=== PATIENT | female | born 1980 | race Caucasian/White ===

== ENCOUNTER 2017-04-16 22:59 | Outpatient (CLI) | payer MEDICAID ==
[2017-04-17 00:16] LABS: ADD UMIC NO; UR ASCORBIC ACID NEGATIVE (NEGATIVE); UR BILIRUBIN (Dip) NEGATIVE (NEGATIVE); UR BLOOD (Dip) NEGATIVE (NEGATIVE); UR CLARITY CLEAR (CLEAR); UR COLOR YELLOW (YELLOW); UR GLUCOSE (Dip) NEGATIVE (NEGATIVE); UR KETONES (Dip) NEGATIVE (NEGATIVE); UR LEUKOCYTE ESTERASE (Dip) NEGATIVE Leu/ul (NEGATIVE); UR NITRITE (Dip) NEGATIVE (NEGATIVE); UR SPECIFIC GRAVITY (Dip) 1.016 (1.003-1.030); UR TOTAL PROTEIN (Dip) NEGATIVE (NEGATIVE); UR UROBILINOGEN (Dip) 1+ mg/dL (NEGATIVE)
== END 2017-04-17 03:36 | disposition home or self-care (01) ==
LOC: OBT 22:59 → L-D 23:03
DX: O62.9 Abnormality of forces of labor, unspecified (principal); Z3A.36 36 weeks gestation of pregnancy
CPT/HCPCS: 76815; 76818; 81003

== ENCOUNTER 2017-04-28 19:27 | Inpatient (IN) | payer MEDICAID ==
[2017-04-28] MEDS ORDERED: LACTATED RINGER'S 1,000 ML IV (20:06)
[2017-04-28] MEDS ORDERED: CARBOPROST 250 MCG INJ IM (20:30)
[2017-04-28] MEDS ORDERED: MISOPROSTOL 200 MCG TAB PR (20:30)
[2017-04-28] MEDS ORDERED: METHYLERGONOVINE 0.2 MG INJ IM (20:30)
[2017-04-28] MEDS ORDERED: OXYTOCIN 30 UNITS/LR 500 ML IV ×2 (20:30)
[2017-04-28] MEDS ORDERED: BUTORPHANOL 2 MG INJ IV (20:30)
[2017-04-28] MEDS ORDERED: LIDOCAINE 1% (MPF) 30 ML INJ INJ (20:30)
[2017-04-28] MEDS: LACTATED RINGER'S 1,000 ML IV (20:40)
[2017-04-28] MEDS: AMPICILLIN 2 GM/NS (PMX) 100 ML IV (20:45)
[2017-04-28 21:14] LABS: ADD MAN DIFF? NO
[2017-04-28] MEDS: OXYTOCIN 30 UNITS/LR 500 ML IV ×2 (21:15→23:06)
[2017-04-28 21:17] LABS: WHITE BLOOD COUNT 9.1 10^3/ul (4.8-10.8)
[2017-04-28 21:17] LABS: BASOPHILS % 0.3 % (0.0-2.0); EOSINOPHILS # 0.1 10^3/ul (0.0-0.5); HEMATOCRIT 32.3 % (37.0-47.0); HEMOGLOBIN 10.8 g/dl (12.0-16.0); LYMPHOCYTES # 2.3 10^3/ul (0.8-2.9); LYMPHOCYTES % 25.6 % (15.0-51.0); MEAN CORPUSCULAR HEMOGLOBIN 29.5 pg (29.0-33.0); MEAN CORPUSCULAR HGB CONC 33.4 g/dl (32.0-37.0); MEAN CORPUSCULAR VOLUME 88.3 fl (82.0-101.0); MEAN PLATELET VOLUME 12.6 fl (7.4-10.4); MONOCYTE # 0.6 10^3/ul (0.3-0.9); MONOCYTES % 6.8 % (0.0-11.0); PLATELET COUNT 131 10^3/UL (140-415); RED BLOOD COUNT 3.66 10^6/ul (4.20-5.40); RED CELL DISTRIBUTION WIDTH 12.7 % (11.5-14.5)
[2017-04-28 21:40] LABS: PROTIME 12.2 Sec (11.9-14.9)
[2017-04-28 21:41] LABS: PARTIAL THROMBOPLASTIN TIME 21.9 Sec (25.0-35.0)
[2017-04-28 22:09] LABS: HEPATITIS B SURFACE ANTIGEN NEGATIVE (NEGATIVE)
[2017-04-28] MEDS: IBUPROFEN 600 MG TAB PO (22:54)
[2017-04-28] MEDS ORDERED: DEXTROSE 5%-LR 1,000 ML IV (23:43)
[2017-04-29] MEDS ORDERED: AMPICILLIN 1 GM/NS (PMX) 50 ML IV (00:30)
[2017-04-29] MEDS ORDERED: OXYTOCIN 30 UNITS/LR 500 ML IV ×4 (01:02→02:00)
[2017-04-29] MEDS ORDERED: CARBOPROST 250 MCG INJ IM ×3 (01:30→02:00)
[2017-04-29] MEDS ORDERED: NA PHOSPHATE/BIPHOS 133 ML ENEMA PR (01:30)
[2017-04-29] MEDS ORDERED: WITCH HAZEL/GLYCERIN PAD PR (01:30)
[2017-04-29] MEDS ORDERED: LANOLIN 7 GM TUBE TOP (01:30)
[2017-04-29] MEDS ORDERED: DIBUCAINE 1% 30 GM OINT PR ×2 (01:30→02:00)
[2017-04-29] MEDS ORDERED: METHYLERGONOVINE 0.2 MG INJ IM ×3 (01:30→02:00)
[2017-04-29] MEDS ORDERED: BENZOCAINE 20% 56 ML SPRAY TOP (01:30)
[2017-04-29] MEDS ORDERED: ACETAMINOPHEN 325 MG TAB PO ×2 (01:30→02:00)
[2017-04-29] MEDS ORDERED: ZOLPIDEM 5 MG TAB PO ×2 (01:30→02:00)
[2017-04-29] MEDS ORDERED: MISOPROSTOL 200 MCG TAB PR ×3 (01:30→02:00)
[2017-04-29] MEDS ORDERED: LACTATED RINGER'S 1,000 ML IV* (01:53)
[2017-04-29] MEDS ORDERED: ONDANSETRON 4 MG INJ IV (02:00)
[2017-04-29] MEDS ORDERED: OXYCODONE/ASPIRIN (4.88/325) TAB PO (02:00)
[2017-04-29] MEDS ORDERED: DIPHENHYDRAMINE 50 MG INJ IV (02:00)
[2017-04-29] MEDS: WITCH HAZEL/GLYCERIN PAD PR (02:53)
[2017-04-29] MEDS: HYDROCODONE/APAP (5/325) TAB PO (02:53)
[2017-04-29] MEDS: BENZOCAINE 20% 56 ML SPRAY TOP (02:53)
[2017-04-29] MEDS: LANOLIN 7 GM TUBE TOP (02:54)
[2017-04-29] MEDS: IBUPROFEN 600 MG TAB PO ×3 (05:35→18:23)
[2017-04-29] MEDS ORDERED: IBUPROFEN 800 MG TAB PO (06:00)
[2017-04-29] MEDS ORDERED: SENNA/DOCUSATE NA (8.6MG/50MG) TAB PO (09:00)
[2017-04-29 09:15] LABS: ADD MAN DIFF? NO
[2017-04-29 09:18] LABS: BASOPHILS % 0.3 % (0.0-2.0); EOSINOPHILS # 0.2 10^3/ul (0.0-0.5); EOSINOPHILS % 1.2 % (0.0-7.0); HEMATOCRIT 30.8 % (37.0-47.0); HEMOGLOBIN 10.3 g/dl (12.0-16.0); LYMPHOCYTES % 26.3 % (15.0-51.0); MEAN CORPUSCULAR HEMOGLOBIN 29.4 pg (29.0-33.0); MEAN CORPUSCULAR HGB CONC 33.4 g/dl (32.0-37.0); MEAN PLATELET VOLUME 12.3 fl (7.4-10.4); MONOCYTES % 6.9 % (0.0-11.0); NEUTROPHIL # 9.8 10^3/ul (1.6-7.5); NEUTROPHILS % 64.8 % (39.0-77.0); PLATELET COUNT 121 10^3/UL (140-415)
[2017-04-29 09:18] LABS: WHITE BLOOD COUNT 15.1 10^3/ul (4.8-10.8)
[2017-04-29] MEDS: SENNA/DOCUSATE NA (8.6MG/50MG) TAB PO ×2 (10:18→21:40)
[2017-04-29 15:46] LABS: RAPID PLASMA REAGIN NONREACTIVE (NR)
[2017-04-30] MEDS: IBUPROFEN 600 MG TAB PO ×4 (00:06→17:28)
[2017-04-30] MEDS: HYDROCODONE/APAP (5/325) TAB PO (03:58)
[2017-04-30] MEDS: SENNA/DOCUSATE NA (8.6MG/50MG) TAB PO (09:14)
[2017-04-30] MEDS: WITCH HAZEL/GLYCERIN PAD PR (09:14)
[2017-04-30] MEDS: INFLUENZA VIRUS VACCINE 0.5 ML SYG IM* (10:51)
[2017-04-30] MEDS: DIPHTH/TET/ACEL PERTUSS (ADULT) 0.5 ML VIAL IM* (15:08)
[2017-05-01] MEDS ORDERED: DIPHTH/TET/ACEL PERTUSS (ADULT) 0.5 ML VIAL IM* (09:00)
[2017-05-01] MEDS ORDERED: MEASLES,MUMPS,RUBELLA VACCINE INJ SC* (09:00)
== END 2017-04-30 18:45 | disposition home or self-care (01) | DRG 775 ==
LOC: OBT 19:27 → PP1 04-29 00:47 → L-D 19:28 → OBT 19:50 → L-D 19:50
PROVIDERS: Obstetrics & Gynecology
PROC: 10E0XZZ Delivery of Products of Conception, External Approach (ICD-10-PCS; principal; 2017-04-28)
DX: O80 Encounter for full-term uncomplicated delivery (principal); Z37.0 Single live birth; Z3A.38 38 weeks gestation of pregnancy
CPT/HCPCS: 85025; 85610; 85730; 86592; 86850; 86900; 86901; 87340